=== PATIENT | female | born 1970 | race Caucasian/White ===

== ENCOUNTER 2025-01-06 16:06 | Emergency (ER) | payer OTHER ==
[~2025-01-06 16:06] MED LIST: Iopamidol 370 76% 100 ML VIAL ONE
[2025-01-06] MEDS ORDERED: Metoclopramide HCl 10 MG (2 mL) VIAL ONE (17:05)
[2025-01-06] MEDS ORDERED: Acetaminophen 500 MG TAB ONE (17:05)
[2025-01-06] MEDS ORDERED: Magnesium 2 GM/50 ML BAG (IN WATER) ONE (17:13)
[2025-01-06 17:20] LABS: #Basophils 0.08 10x3/uL (0.0-0.2); #Eosinophils 0.50 10x3/uL (0.0-0.7); #Monocytes 0.78 10x3/uL (0.11-0.59); #Neutrophils 4.53 10x3/uL (1.40-6.50); %Basophils 0.9 % (0.0-1.0); %Eosinophils 5.3 % (0.0-10.0); %Lymphocytes 37.1 % (21.0-51.0); %Monocytes 8.3 % (0.0-10.0); %Neutrophils 48.2 % (42.0-75.0); Hematocrit 42.7 % (36.0-47.0); Hemoglobin 14.4 g/dL (12.0-16.0); Mean Corpuscular Hemoglobin 30.4 pg (27.0-31.0); Mean Corpuscular Volume 90.1 fL (78.0-98.0); Platelet Count 136 10x3/uL (130-400); Red Blood Cell (RBC) Count 4.74 mill/uL (4.20-5.40); White Blood Cell (WBC) Count 9.40 10x3/uL (4.8-10.8)
[2025-01-06 17:40] LABS: ALT (SGPT) 34 U/L (Less than 34); AST (SGOT) 49 U/L (11-34); Albumin 3.8 g/dL (3.1-4.5); Alkaline Phosphatase 145 U/L (40-110); Anion Gap 13 mmol/L (10-20); BUN (Urea Nitrogen) 6 mg/dL (9.8-20.1); Bilirubin, Total 0.6 mg/dL (0.3-1.2); Calc. Creatinine Clearance 0 mL/min (70-130); Calcium 9.3 mg/dL (7.8-10.44); Carbon Dioxide 26 mmol/L (22-29); Chloride 109 mmol/L (98-107); Globulin 3.2 g/dL (2.4-3.5); Glucose 82 mg/dL (70-105); Potassium 3.5 mmol/L (3.5-5.1); Sodium 144 mmol/L (136-145)
== END 2025-01-06 19:40 | disposition home or self-care (01) ==
LOC: ERS 16:06
DX: I65.29 Occlusion and stenosis of unspecified carotid artery (principal); R51.9 Headache, unspecified; M54.2 Cervicalgia; R29.700 NIHSS score 0; E78.5 Hyperlipidemia, unspecified; F17.210 Nicotine dependence, cigarettes, uncomplicated; Z79.899 Other long term (current) drug therapy
CPT/HCPCS: 20552; 70496; 70498; 80053; 84484; 85025; 93005; 96365; 96375; J2765; J3475; Q9967